=== PATIENT | male | born 1975 | race Caucasian/White ===

== ENCOUNTER 2020-09-11 11:37 | Emergency (ER) | payer OTHER, SELFPAY ==
[2020-09-11 11:38] VITALS: BP 144/95; PULSE 122; RESP 35; TEMP 36.9; O2SAT 96; BMI 29.5
--- NOTE | 2020-09-11 11:46 | XRR_ITS ---
PROCEDURE INFORMATION: Exam: XR Chest Exam date and time: 09/11/2020 12:18 PM Age: 45 years old Clinical indication: Pain; Dyspnea; Left-sided TECHNIQUE: Imaging protocol: XR of the chest. Views: 1 view. COMPARISON: No relevant prior studies available. FINDINGS: Lungs: Unremarkable. No consolidation. Pleural spaces: Unremarkable. No pleural effusion. No pneumothorax. Heart/Mediastinum: Unremarkable. No cardiomegaly. Bones/joints: Unremarkable. XR/XR chest 1V portable [id number] IMPRESSION: No acute findings.
[2020-09-11 11:48] VITALS: BP 127/69; PULSE 120; RESP 22; O2SAT 100
--- NOTE | 2020-09-11 11:49 | ECG_ITS ---
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 Measurements Intervals [place] Rate: 114 P: 58 DC: 151 QRS: 253 QRSD: 117 T: 55 QT: 365 QTc: 504 Interpretive Statements SINUS TACHYCARDIA POSSIBLE LEFT ATRIAL ENLARGEMENT [-0.1mV P WAVE IN V1/V2] RIGHT VENTRICULAR HYPERTROPHY [SOME/ALL OF: PROMINENT R IN V1, LATE TRANSITION, RAD, NATHAN, SSS] POSSIBLE ANTERIOR MYOCARDIAL INFARCTION [30 ms Q WAVE IN V3/V4, OR R < 0.2 mV IN V4], OF INDETERMINATE AGE No previous ECG available for comparison Electronically Signed On 09-11-2020 22:52:47 CDT by Shikha Zendejas M.D. [id number]
--- NOTE | 2020-09-11 11:50 | ED_ITS ---
HPI - SOB/Dyspnea General: Chief Complaint: Shortness of Breath/Dyspnea Stated Complaint: CHEST PAIN; SOB Time Seen by Provider: 09/11/20 11:46 History of Present Illness: HPI Narrative: The patient is a 45-year-old male with past medical history PTSD, anxiety who comes to the ER by ambulance complaining of shortness of breath, cough, chest pain, and wheezing for the past 4 days. He told his yesterday that he could not breathe and went to bed today he wakes up and the symptoms were worse. He called 911. EMS arrived and noted him with inspiratory and expiratory wheezing and tachypneic.. They gave him 2 albuterol treatments, 1 DuoNeb, Solu-Medrol, and terbutaline during transport. On arrival he is tachypneic however has no wheezing. He is complaining of mild left-sided chest pain that is worse with inspiration, movement, and reproducible by palpation. He says he gets frequent panic attacks related to his PTSD and he feels like he is having a panic attack right now. He says he has had asthma attacks in the past but does not suffer chronically from asthma. He says a few different times in the past he has had wheezing and required albuterol which improved his symptoms but he does not routinely have or use an albuterol inhaler. MD elicited complaint: shortness of breath, cough, pain with inspiration and chest pain Timing: constant Severity: moderate Exacerbating factors: nothing Relieving factors: bronchodilators Associated symptoms: Reports chest pain and cough; Deny abdominal pain, dizziness, extremity pain or polyuria Treatment prior to arrival: bronchodilator Review of Systems General: Reports: 10 or more systems reviewed and unremarkable except in HPI and below Const: Denies: fatigue Eyes: Denies: change in vision, blurry vision or eye redness ENMT: Denies: throat pain, swelling of lips/tongue, ear or mastoid pain or nasal congestion Card: Reports: chest pain Resp: Reports: dyspnea, non-productive cough and wheezing; Denies: productive cough GI: Denies: abdominal pain, diarrhea or GI cramping : Denies: flank pain, urinary frequency or urinary urgency Musc: Denies: neck pain, back pain, extremity pain, joint pain, joint redness, limited range of motion or muscle weakness Skin/Breast: Denies: rash, pruritus, erythema, skin pain or skin tenderness Neuro: Denies: headache(s), numbness in extremities, weakness in extremities, sensory changes, difficulty walking, dizziness, confusion or Slurred speech present Psych: Reports: anxiety and other (panic attack; PTSD); Denies: depression Endo: Denies: polyuria All/Imm: Denies: urticaria, throat swelling or tongue swelling Physical Exam Const: COMMON NORMALS: average body habitus, patient oriented x3, no limitations, healthy appearing, alert and well nourished GENERAL APPEARANCE: cooperative, comfortable, well developed and anxious ORIENTATION/CONSCIOUSNESS: Yes awake, Yes oriented to person, Yes oriented to place and Yes oriented to time OTHER: Severely anxious in panic attack. No wheezing on exam. HENMT: COMMON NORMALS: normocephalic, external ears normal and Normal external nose present HEAD & SCALP: normal to inspection and normocephalic NOSE: Normal external nose present EXTERNAL EAR: Yes external ears normal MOUTH: Normal oral and palatal mucosa present THROAT: posterior oropharynx normal Eye: COMMON NORMALS: Equal, round and reactive pupils present and EOMs intact bilaterally GENERAL EYE: appearance normal, both eyes and all related structures PUPIL: Yes Equal, round and reactive pupils present Neck/C-Spine: COMMON NORMALS: full ROM, no lymphadenopathy, no meningeal signs and no JVD GENERAL: Yes normal visual inspection Lymph: LYMPHATIC: no lymphadenopathy noted Chest: COMMONS NORMALS: normal inspection of the chest and normal palpation of entire chest wall Resp: COMMON NORMALS: normal respiratory effort, No retractions, No use of accessory muscles, clear to auscultation bilaterally and percussion normal EFFORT & INSPECTION: Yes able to speak in complete sentences and Yes tachypneic AUSCULTATION: clear to auscultation bilaterally PERCUSSION: percussion normal Cardio: COMMON NORMALS: no JVD, regular rhythm, S1 normal heart sound present, S2 normal heart sound present and Peripheral pulses 2+ throughout RATE: tachycardic RHYTHM: regular rhythm HEART SOUNDS: S1 normal heart sound present and S2 normal heart sound present PERIPHERAL PULSES: Peripheral pulses 2+ throughout GI: COMMON NORMALS: Normal to inspection, nondistended, normoactive bowel sounds present, Soft to palpation, non-tender and no masses INSPECTION: Yes normal to inspection PALPATION: Yes Soft to palpation : COMMON NORMALS: Yes no CVA tenderness BLADDER/KIDNEY EXAM: Yes no CVA tenderness Back/Pelvis: COMMON NORMALS: no CVA tenderness, thoracic and lumbar spine normal to inspection, no thoracic nor lumbar tenderness and thoraco-lumbar ROM normal Extremity: COMMON NORMALS: normal to inspection, full ROM, capillary refill normal, no joint enlargement and no pedal edema GENERAL: Yes normal exam except as noted Neuro: COMMON NORMALS: patient oriented x3, CN's II-XII intact bilaterally, moves all extremities, no focal motor deficits, no sensory deficits noted and gait normal SENSORIUM/ORIENTATION: Yes alert, Yes oriented to person, Yes oriented to place and Yes oriented to time MENINGEAL SIGNS: Yes no meningeal signs Psych: COMMON NORMALS: Normal thought process present, cooperative and normal affect SPEECH: Yes excessive and Yes rapid MOOD & AFFECT: Yes anxious and Yes Other affect and mood findings present (panic attack. severe anxiety.) THOUGHT PROCESS: Normal thought process present Skin: COMMON NORMALS: no rashes or lesions noted GENERAL SKIN EXAM: no rashes or lesions noted Course Vital Signs: Vital signs: Vital Signs Temperature 98.5 F 09/11/20 11:38 Pulse Rate 101 H 09/11/20 14:40 Respiratory Rate 16 09/11/20 14:40 Blood Pressure 117/75 09/11/20 14:40 Pulse Oximetry 94 09/11/20 14:40 MDM - SOB/Dyspnea MDM Narrative: Medical decision making narrative: The patient came in complaining of shortness of breath and wheezing at home since yesterday. He has severe PTSD and panic attacks as well. EMS gave him albuterol and Solu-Medrol with resolution of his symptoms. No wheezing in the ER. He was however having a significant panic attack and was given Ativan. He became calm. He was also complaining of pleuritic chest pain with coughing which was also reproducible by palpation. Troponins negative x2 as well as normal EKGs x2. He is stable for discharge. We will send him home with azithromycin for a potential bronchitis, Medrol Dosepak, and albuterol inhaler to help with his wheezing. Return to the ER at anytime with worsening symptoms. Follow-up with primary care physician next week to monitor improvement of symptoms. Lab Data: Labs: Lab Results 09/11/20 09/11/20 09/11/20 Range/Units 11:45 11:45 11:45 WBC 9.9 (4.0-10.0) 10^3/ uL RBC 4.95 (4.1-5.3) 10^6/u L Hgb 15.1 (11.7-16.6) g/dL Hct 45.3 (42.0-52.0) % MCV 91.5 (80-94) fL MCH 30.5 (28.0-34.0) pg MCHC 33.3 (30.0-36.0) g/dL RDW 14.3 (12.1-15.1) % Plt Count 200 (130-400) 10^3/c mm MPV 11.9 H (7.4-10.4) fL Neut % (Auto) 54.3 % Lymph % (Auto) 32.9 % [place] % (Auto) 9.7 % Eos % (Auto) 1.9 % Baso % (Auto) 0.6 % Neut # (Auto) 5.37 (1.8-7.7) 10^3/u L Lymph # (Auto) 3.3 (0.8-4.8) 10^3/u L [place] # (Auto) 1.0 H (0.2-0.9) 10^3/u L Eos # (Auto) 0.2 (0.0-0.8) 10^3/u L Baso # (Auto) 0.1 (0.0-0.1) 10^3/u L Nucleated RBC % (a uto) 0 % Nucleated RBCs # 0.0 /100WBC D-Dimer <= 0.27 (0-0.59) ug/mIFE U Sodium 133 L (136-145) mmol/L Potassium 4.4 (3.5-5.1) mmol/L Chloride 97 L (98-107) mmol/L Carbon Dioxide 22 (22-29) mmol/L Anion Gap 18.4 (5-19) BUN 18 (6-20) mg/dL Creatinine 0.9 (0.7-1.2) mg/dL GFR Calculation 91.7 (90-130) mL/min Glucose 95 (65-115) mg/dL Calculated Osmolal ity 278 L (285-295) mOsm/k g Lactate (0.5-2.2) mmol/L Calcium 9.0 (8.5-10.5) mg/dL Total Bilirubin 0.5 (0.15-1.2) mg/dL AST 32 (0-40) U/L ALT 38 (0-41) U/L Alkaline Phosphata se 65 (40-130) IU/L Creatine Kinase (39-308) U/L Troponin T Baselin e (0-15) ng/L Troponin T 120 Min [place] (0-15) ng/L Delta Troponin T (0-10) ABS# Total Protein 7.1 (6.6-8.7) g/dL Albumin 4.9 (3.5-5.2) g/dL Globulin 2.2 (1.3-4.6) g/dL TSH 1.43 (0.27-4.20) uIU/ mL Urine Color (Yellow) Urine Appearance (CLEAR) Urine pH (5-7) Ur Specific Gravit y (1.005-1.030) Urine Protein (Negative) Urine Glucose (UA) (Normal) Urine Ketones (Negative) Urine Blood (Negative) Urine Nitrate (Negative) Urine Bilirubin (Negative) Urine Urobilinogen (Negative) mg/dL Ur Leukocyte Gricelda ase (Negative) Urine Opiates Scre en (Negative) ng/mL Ur Barbiturates Sc reen (Negative) ng/mL Ur Phencyclidine S crn (Negative) ng/mL Ur Amphetamines Sc reen (Negative) ng/mL U Benzodiazepines Scrn (Negative) ng/mL Urine Cocaine Scre en (Negative) ng/mL U Marijuana (THC) Screen (Negative) ng/mL Ethyl Alcohol 62 H (0-10) mg/dL 09/11/20 09/11/20 09/11/20 Range/Units 11:45 11:45 12:05 WBC (4.0-10.0) 10^3/ uL RBC (4.1-5.3) 10^6/u L Hgb (11.7-16.6) g/dL Hct (42.0-52.0) % MCV (80-94) fL MCH (28.0-34.0) pg MCHC (30.0-36.0) g/dL RDW (12.1-15.1) % Plt Count (130-400) 10^3/c mm MPV (7.4-10.4) fL Neut % (Auto) % Lymph % (Auto) % [place] % (Auto) % Eos % (Auto) % Baso % (Auto) % Neut # (Auto) (1.8-7.7) 10^3/u L Lymph # (Auto) (0.8-4.8) 10^3/u L [place] # (Auto) (0.2-0.9) 10^3/u L Eos # (Auto) (0.0-0.8) 10^3/u L Baso # (Auto) (0.0-0.1) 10^3/u L Nucleated RBC % (a uto) % Nucleated RBCs # /100WBC D-Dimer (0-0.59) ug/mIFE U Sodium (136-145) mmol/L Potassium (3.5-5.1) mmol/L Chloride (98-107) mmol/L Carbon Dioxide (22-29) mmol/L Anion Gap (5-19) BUN (6-20) mg/dL Creatinine (0.7-1.2) mg/dL GFR Calculation (90-130) mL/min Glucose (65-115) mg/dL Calculated Osmolal ity (285-295) mOsm/k g Lactate 5.7 H* (0.5-2.2) mmol/L Calcium (8.5-10.5) mg/dL Total Bilirubin (0.15-1.2) mg/dL AST (0-40) U/L ALT (0-41) U/L Alkaline Phosphata se (40-130) IU/L Creatine Kinase 77 (39-308) U/L Troponin T Baselin e 7 (0-15) ng/L Troponin T 120 Min [place] (0-15) ng/L Delta Troponin T (0-10) ABS# Total Protein (6.6-8.7) g/dL Albumin (3.5-5.2) g/dL Globulin (1.3-4.6) g/dL TSH (0.27-4.20) uIU/ mL Urine Color (Yellow) Urine Appearance (CLEAR) Urine pH (5-7) Ur Specific Gravit y (1.005-1.030) Urine Protein (Negative) Urine Glucose (UA) (Normal) Urine Ketones (Negative) Urine Blood (Negative) Urine Nitrate (Negative) Urine Bilirubin (Negative) Urine Urobilinogen (Negative) mg/dL Ur Leukocyte Gricelda ase (Negative) Urine Opiates Scre en (Negative) ng/mL Ur Barbiturates Sc reen (Negative) ng/mL Ur Phencyclidine S crn (Negative) ng/mL Ur Amphetamines Sc reen (Negative) ng/mL U Benzodiazepines Scrn (Negative) ng/mL Urine Cocaine Scre en (Negative) ng/mL U Marijuana (THC) Screen (Negative) ng/mL Ethyl Alcohol (0-10) mg/dL 09/11/20 09/11/20 09/11/20 Range/Units 12:25 12:25 13:50 WBC (4.0-10.0) 10^3/ uL RBC (4.1-5.3) 10^6/u L Hgb (11.7-16.6) g/dL Hct (42.0-52.0) % MCV (80-94) fL MCH (28.0-34.0) pg MCHC (30.0-36.0) g/dL RDW (12.1-15.1) % Plt Count (130-400) 10^3/c mm MPV (7.4-10.4) fL Neut % (Auto) % Lymph % (Auto) % [place] % (Auto) % Eos % (Auto) % Baso % (Auto) % Neut # (Auto) (1.8-7.7) 10^3/u L Lymph # (Auto) (0.8-4.8) 10^3/u L [place] # (Auto) (0.2-0.9) 10^3/u L Eos # (Auto) (0.0-0.8) 10^3/u L Baso # (Auto) (0.0-0.1) 10^3/u L Nucleated RBC % (a uto) % Nucleated RBCs # /100WBC D-Dimer (0-0.59) ug/mIFE U Sodium (136-145) mmol/L Potassium (3.5-5.1) mmol/L Chloride (98-107) mmol/L Carbon Dioxide (22-29) mmol/L Anion Gap (5-19) BUN (6-20) mg/dL Creatinine (0.7-1.2) mg/dL GFR Calculation (90-130) mL/min Glucose (65-115) mg/dL Calculated Osmolal ity (285-295) mOsm/k g Lactate 3.5 H (0.5-2.2) mmol/L Calcium (8.5-10.5) mg/dL Total Bilirubin (0.15-1.2) mg/dL AST (0-40) U/L ALT (0-41) U/L Alkaline Phosphata se (40-130) IU/L Creatine Kinase (39-308) U/L Troponin T Baselin e (0-15) ng/L Troponin T 120 Min [place] (0-15) ng/L Delta Troponin T (0-10) ABS# Total Protein (6.6-8.7) g/dL Albumin (3.5-5.2) g/dL Globulin (1.3-4.6) g/dL TSH (0.27-4.20) uIU/ mL Urine Color Straw (Yellow) Urine Appearance Clear (CLEAR) Urine pH 6 (5-7) Ur Specific Gravit y 1.010 (1.005-1.030) Urine Protein Neg (Negative) Urine Glucose (UA) Norm (Normal) Urine Ketones Negative (Negative) Urine Blood Neg (Negative) Urine Nitrate Negative (Negative) Urine Bilirubin Neg (Negative) Urine Urobilinogen Norm (Negative) mg/dL Ur Leukocyte Gricel[place] ase Negative (Negative) Urine Opiates Scre en Negative (Negative) ng/mL Ur Barbiturates Sc reen Negative (Negative) ng/mL Ur Phencyclidine S crn Negative (Negative) ng/mL Ur Amphetamines Sc reen Negative (Negative) ng/mL U Benzodiazepines Scrn Negative (Negative) ng/mL Urine Cocaine Scre en Negative (Negative) ng/mL U Marijuana (THC) Screen Negative (Negative) ng/mL Ethyl Alcohol (0-10) mg/dL 09/11/20 Range/Units 14:00 WBC (4.0-10.0) 10^3/ uL RBC (4.1-5.3) 10^6/u L Hgb (11.7-16.6) g/dL Hct (42.0-52.0) % MCV (80-94) fL MCH (28.0-34.0) pg MCHC (30.0-36.0) g/dL RDW (12.1-15.1) % Plt Count (130-400) 10^3/c mm MPV (7.4-10.4) fL Neut % (Auto) % Lymph % (Auto) % [place] % (Auto) % Eos % (Auto) % Baso % (Auto) % Neut # (Auto) (1.8-7.7) 10^3/u L Lymph # (Auto) (0.8-4.8) 10^3/u L [place] # (Auto) (0.2-0.9) 10^3/u L Eos # (Auto) (0.0-0.8) 10^3/u L Baso # (Auto) (0.0-0.1) 10^3/u L Nucleated RBC % (a uto) % Nucleated RBCs # /100WBC D-Dimer (0-0.59) ug/mIFE U Sodium (136-145) mmol/L Potassium (3.5-5.1) mmol/L Chloride (98-107) mmol/L Carbon Dioxide (22-29) mmol/L Anion Gap (5-19) BUN (6-20) mg/dL Creatinine (0.7-1.2) mg/dL GFR Calculation (90-130) mL/min Glucose (65-115) mg/dL Calculated Osmolal ity (285-295) mOsm/k g Lactate (0.5-2.2) mmol/L Calcium (8.5-10.5) mg/dL Total Bilirubin (0.15-1.2) mg/dL AST (0-40) U/L ALT (0-41) U/L Alkaline Phosphata se (40-130) IU/L Creatine Kinase (39-308) U/L Troponin T Baselin e (0-15) ng/L Troponin T 120 Min [place] 6.00 (0-15) ng/L Delta Troponin T -1.00 L (0-10) ABS# Total Protein (6.6-8.7) g/dL Albumin (3.5-5.2) g/dL Globulin (1.3-4.6) g/dL TSH (0.27-4.20) uIU/ mL Urine Color (Yellow) Urine Appearance (CLEAR) Urine pH (5-7) Ur Specific Gravit y (1.005-1.030) Urine Protein (Negative) Urine Glucose (UA) (Normal) Urine Ketones (Negative) Urine Blood (Negative) Urine Nitrate (Negative) Urine Bilirubin (Negative) Urine Urobilinogen (Negative) mg/dL Ur Leukocyte Gricelda ase (Negative) Urine Opiates Scre en (Negative) ng/mL Ur Barbiturates Sc reen (Negative) ng/mL Ur Phencyclidine S crn (Negative) ng/mL Ur Amphetamines Sc reen (Negative) ng/mL U Benzodiazepines Scrn (Negative) ng/mL Urine Cocaine Scre en (Negative) ng/mL U Marijuana (THC) Screen (Negative) ng/mL Ethyl Alcohol (0-10) mg/dL Discharge Plan Discharge Patient Disposition: Home Condition: Stable Prescriptions: New azithromycin 250 mg tablet 250 mg PO DAILY 4 Days Qty: 4 RF: 0 Medrol (Av) 4 mg tablets,dose pack See Rx Instructions .ROUTE .COMPLEX Qty: 21 RF: 0 albuterol sulfate 90 mcg/actuation HFA aerosol inhaler 2 inh inhalation Q6H PRN (Reason: shortness of breath or wheezing) 30 Days RF: 0 Discharge Orders: Discharge ED (Routine); Ordered 09/11/20 Ordered By: Cyril Casanova Discharge Diet: Advance as tolerated Discharge Activity: Resume usual activity Patient Instructions: Asthma (ED), Acute Bronchitis (ED), Opioid Safety Activity Restrictions/Additional Instructions: You have come in complaining of shortness of breath and chest pain with coughing as well as wheezing. I will be discharging you home with an albuterol inhaler t o help with your wheezing, steroids, and an antibiotic to treat a potential bronchitis. Use the albuterol inhaler to help with your wheezing and follow-up with your primary care physician next week to monitor improvement of your symptoms. Return to the ER at anytime with worsening symptoms. Please keep in mind the steroids will take 1 to 2 days to fully kick in and help. Also continue to take the antibiotics as directed. Return to the ER at anytime with worsening symptoms. Coding Level of Care Code ED Systems Development Consultant for Jaquelin Fwsosa Exam Comprehensive
[2020-09-11 12:01] LABS: Basophils # 0.1 10^3/uL (0.0-0.1); Basophils % 0.6 %; Eosinophils # 0.2 10^3/uL (0.0-0.8); Eosinophils % 1.9 %; Hematocrit 45.3 % (42.0-52.0); Hemoglobin 15.1 g/dL (11.7-16.6); Lymphocytes # 3.3 10^3/uL (0.8-4.8); Lymphocytes % 32.9 %; Mean Corpuscular HGB Conc 33.3 g/dL (30.0-36.0); Mean Corpuscular Hemoglobin 30.5 pg (28.0-34.0); Mean Corpuscular Volume 91.5 fL (80-94); Mean Platelet Volume 11.9 fL (7.4-10.4); Monocytes % 9.7 %; Neutrophils # 5.37 10^3/uL (1.8-7.7); Neutrophils % 54.3 %; Nucleated Red Blood Cells % 0 %; Platelet Count 200 10^3/cmm (130-400); Red Blood Count 4.95 10^6/uL (4.1-5.3); Red Cell Distribution Width 14.3 % (12.1-15.1); White Blood Count 9.9 10^3/uL (4.0-10.0)
[2020-09-11] MEDS: sodium chloride 0.9% 1,000 ML 999 ML IV ×2 (12:04→13:07)
[2020-09-11] MEDS: LORazepam 2 mg/mL INJ 1 mL 1 MG IVP (12:04)
[2020-09-11 12:12] LABS: D Dimer <= 0.27 ug/mIFEU (0-0.59)
[2020-09-11 12:13] VITALS: BP 132/68; PULSE 114; RESP 18; O2SAT 94
[2020-09-11 12:19] LABS: Troponin(5th) Baseline 7 ng/L (0-15)
[2020-09-11 12:31] LABS: Lactate (Lactic Acid level) 5.7 mmol/L (0.5-2.2)
[2020-09-11 12:31] LABS: Add Urine Microscopic? NO; Charge for UA Resulting for Rev
[2020-09-11 12:33] LABS: Alanine Aminotransferase 38 U/L (0-41); Albumin Level 4.9 g/dL (3.5-5.2); Alcohol Level 62 mg/dL (0-10); Alkaline Phosphatase 65 IU/L (40-130); Aspartate Amino Transferase 32 U/L (0-40); Blood Urea Nitrogen 18 mg/dL (6-20); Carbon Dioxide 22 mmol/L (22-29); Chloride 97 mmol/L (98-107); Globulin 2.2 g/dL (1.3-4.6); Glomerular Filtration Rate 91.7 mL/min (90-130); Glucose 95 mg/dL (65-115); Osmolality Calculated 278 mOsm/kg (285-295); Sodium 133 mmol/L (136-145); Thyroid Stimulating Hormone 1.43 uIU/mL (0.27-4.20); Total Bilirubin 0.5 mg/dL (0.15-1.2); Total Protein 7.1 g/dL (6.6-8.7)
[2020-09-11 12:34] LABS: Bilirubin Urine Neg (Negative); Blood Urine Neg (Negative); Glucose Urine UA Norm (Normal); Ketones Urine Negative (Negative); Leukocyte Esterase Urine Negative (Negative); Nitrate Urine Negative (Negative); Protein Urine Neg (Negative); Urine Appearance Clear (CLEAR); Urine Color Straw (Yellow); Urobilinogen Urine Norm (Negative); pH Urine 6 (5-7)
[2020-09-11 12:43] LABS: Amphetamines Screen Urine Negative (Negative); Barbiturates Screen Urine Negative (Negative); Benzodiazepines Screen Urine Negative (Negative); Cocaine Screen Urine Negative (Negative); Opiate Screen Urine Negative (Negative); PCP Screen Urine Negative (Negative); THC Screen Urine Negative (Negative)
[2020-09-11 12:56] LABS: Anion Gap 18.4 (5-19); Potassium 4.4 mmol/L (3.5-5.1)
[2020-09-11 13:03] LABS: Creatine Phosphokinase 77 U/L (39-308)
[2020-09-11 13:36] VITALS: BP 110/62; PULSE 96; RESP 16; O2SAT 96
--- NOTE | 2020-09-11 13:49 | ECG_ITS ---
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 Measurements Intervals [place] Rate: 97 P: 29 [place]: 128 QRS: -53 QRSD: 118 T: 45 QT: 387 QTc: 493 Interpretive Statements SINUS RHYTHM PATTERN CONSISTENT WITH PULMONARY DISEASE LEFT ANTERIOR FASCICULAR BLOCK [QRS AXIS <= -45, QR IN I, RS IN II] Compared to ECG 09/11/2020 12:03:54 Left anterior fascicular block now present Sinus tachycardia no longer present Atrial abnormality no longer present Right ventricular hypertrophy no longer present Myocardial infarct finding no longer present Electronically Signed On 09-11-2020 23:10:46 CDT by Shikha Zendejas M.D. [id number]
[2020-09-11 14:28] LABS: Lactate (Lactic Acid level) 3.5 mmol/L (0.5-2.2)
[2020-09-11 14:40] VITALS: BP 117/75; PULSE 101; RESP 16; O2SAT 94
[2020-09-11 15:59] VITALS: BP 117/75; PULSE 101; RESP 16; O2SAT 94
== END 2020-09-11 16:00 | disposition home or self-care (01) ==
PROVIDERS: Emergency Provider Family Medicine
DX: R06.02 Shortness of breath (principal); R05 Cough; R07.9 Chest pain, unspecified
CPT/HCPCS: 71045; 80053; 80306; 80307; 81003; 82550; 83605; 84443; 84484; 85025; 85378; 93005; 96361; 96374; 99284; J2060; J7030

== ENCOUNTER 2021-04-25 14:07 | Outpatient (CLI) | payer OTHER, SELFPAY ==
--- NOTE | 2021-04-25 14:30 | US_ITS ---
WS: [id number] ULTRASOUND ABDOMEN CLINICAL INFORMATION: ABD RUQ PAIN COMPARISON: None. FINDINGS: Technically difficult study Liver Size: Enlarged Craniocaudal length: 16.3 cm. Echogenicity: Coarse Surface nodularity: None. Mass (size and location): None. Bile ducts Intrahepatic ducts: Normal. Common bile duct diameter: 0.4 cm. Gallbladder Normal. Gallstones: None. Gallbladder sludge: None. Gallbladder wall thickening: None. Pericholecystic fluid: None. Sonographic Gonzalez sign: Absent. Pancreas Normal as visualized. Spleen Splenomegaly: Enlarged Craniocaudal length: 14.7 cm. Right kidney: Normal. Hydronephrosis: None. Size: 10.9 cm x 5.4 cm x 5.3 cm Left kidney: Normal. Hydronephrosis: None. Size: 12.0 cm x 5.5 cm x 5.1 cm. Abdominal aorta and IVC Visualized portions are normal. Ascites: None. US/US abdomen complete* [id number] IMPRESSION: Technically difficult examination. 1. Hepatomegaly with diffuse fatty infiltration of the liver. 2. Splenomegaly. 3. Normal gallbladder. Normal common bile duct. 4. No hydronephrosis in either kidney.
== END 2021-04-25 14:08 | disposition home or self-care (01) ==
PROVIDERS: Visit Provider Nurse Practitioner
DX: R10.11 Right upper quadrant pain (principal); R16.2 Hepatomegaly with splenomegaly, not elsewhere classified; K76.0 Fatty (change of) liver, not elsewhere classified
CPT/HCPCS: 76700

== ENCOUNTER 2021-04-26 09:29 | Outpatient (CLI) | payer OTHER, SELFPAY ==
--- NOTE | 2021-04-26 09:37 | CT_ITS ---
WS: [id number] CT ABDOMEN CONTRAST TECHNIQUE: Contrast enhanced CT of the abdomen with coronal and sagittal reformatted images. CLINICAL INFORMATION: ENLARGED SPLEEN COMPARISON: Ultrasound April 25, 2021 DLP: 2340.[address] scans at [facility] use at least one of these dose optimization techniques: automated e xposure control; mA and/or kV adjustment per patient size (includes targeted exams where dose is matc hed to clinical indication); or iterative reconstruction. FINDINGS: Hepatomegaly with diffuse fatty infiltration liver. Normal gallbladder. Normal portal vein and spleni c vein. Normal gallbladder. Mild fatty atrophy of the pancreas. Adrenal glands are normal. Normal yadira al parenchymal enhancement. No hydronephrosis. Lung bases are well aerated. No upper abdominal lympha denopathy. Normal GE junction. Mild splenomegaly measures 14.5 x 6.8 cm. Spleen is otherwise unremarkable. Normal splenic parenchyma l enhancement. CT/CT abdomen w con* [id number] IMPRESSION: 1. Hepatomegaly with diffuse fatty infiltration of the liver. 2. Mild splenomegaly measuring 14.6 x 6.8 cm unchanged since the recent ultras ound. 3. Normal caliber upper abdominal aorta. 4. Adrenal glands are normal. 5. No other significant findings.
[2021-04-26] MEDS: iohexol 300 mg/mL 100 mL Btl IV (09:48)
== END 2021-04-26 09:30 | disposition home or self-care (01) ==
LOC: RAD 09:29
PROVIDERS: PCP Family Medicine; Visit Provider Family Medicine
DX: R16.1 Splenomegaly, not elsewhere classified (principal); R16.0 Hepatomegaly, not elsewhere classified; K76.0 Fatty (change of) liver, not elsewhere classified
CPT/HCPCS: 74160

== ENCOUNTER 2021-05-01 18:48 | Emergency (ER) | payer OTHER, SELFPAY ==
[2021-05-01 19:07] VITALS: BP 150/94; PULSE 91; RESP 20; TEMP 36.7; O2SAT 97; BMI 32.9
--- NOTE | 2021-05-01 21:16 | ED_ITS ---
HPI - Abdominal Pain General: Chief Complaint: Abdominal Pain Stated Complaint: abd pain Time Seen by Provider: 05/01/21 21:07 Source: patient Mode of arrival: ambulatory Limitations: no limitations History of Present Illness: 45-year-old male who states has been having epigastric abdominal pain over the last 9 to 10 days he has been seen at the [place] [facility] had an outpatient CT of the abdomen ultrasound of the gallbladder done here on the that were both negative. He states that he is continue to have pain that sharp in nature seems to be worse with eating denies any vomiting denies any fevers patient is comfortable here. Associated Symptoms: Reports nausea; Denies chills, dysuria and fever(s) Review of Systems Const: Denies: fever(s), chills, body aches or change in appetite Eyes: Denies: blurry vision or eye discomfort ENMT: Denies: throat pain or dental pain Card: Denies: chest pain Resp: Denies: dyspnea GI: Reports: abdominal pain and nausea : Denies: dysuria Musc: Denies: neck pain or back pain Skin/Breast: Denies: rash Neuro: Denies: headache(s) Psych: Denies: depression Chucky/Lymph: Denies: easy bruising All/Imm: Denies: urticaria Physical Exam Const: COMMON NORMALS: no acute distress, patient oriented x3 and healthy appearing HENMT: COMMON NORMALS: normocephalic and atraumatic HEAD & SCALP: normocephalic and atraumatic Eye: COMMON NORMALS: Equal, round and reactive pupils present and EOMs intact bilaterally PUPIL: Yes Equal, round and reactive pupils present Neck/C-Spine: COMMON NORMALS: full ROM and supple Chest: COMMONS NORMALS: normal inspection of the chest and normal palpation of entire chest wall Resp: COMMON NORMALS: normal respiratory effort, No retractions, No use of accessory muscles and clear to auscultation bilaterally AUSCULTATION: clear to auscultation bilaterally Cardio: COMMON NORMALS: regular rate, regular rhythm and No murmurs present (Cardio) RATE: regular rate RHYTHM: regular rhythm GI: COMMON NORMALS: Normal to inspection, nondistended, normoactive bowel sounds present, Soft to palpation and no masses PALPATION: Yes Soft to p alpation OTHER: epigastric tenderness mild Extremity: COMMON NORMALS: normal to inspection and full ROM Neuro: COMMON NORMALS: patient oriented x3, moves all extremities and no focal motor deficits Psych: COMMON NORMALS: mental status grossly normal, Normal thought process present and cooperative THOUGHT PROCESS: Normal thought process present Skin: COMMON NORMALS: no rashes or lesions noted and no wounds GENERAL SKIN EXAM: no rashes or lesions noted Course Vital Signs: Vital signs: Vital Signs Temperature 98.0 F 05/01/21 19:07 Pulse Rate 91 05/01/21 19:07 Respiratory Rate 20 H 05/01/21 21:27 Blood Pressure 150/94 05/01/21 19:07 Pulse Oximetry 97 05/01/21 19:07 MDM - Abdominal Pain Medical Decision Making Patient presents here with abdominal pain has been going on for weeks likely gastritis will start him on Protonix along with hydrocodone we will get him follow-up with surgery I did review his recent CT scan and ultrasound was done 5 days ago both were normal with no acute abnormalities blood work here is normal no signs of acute surgical abdomen he is return if worsening he understands agrees to plan. Lab Data : 05/01/21 21:15 05/01/21 22:10 Labs/Radiology: Laboratory Results WBC 6.2 10^3/uL (4.0-10.0) 05/01/21 21:15 RBC 5.16 10^6/uL (4.1-5.3) 05/01/21 21:15 Hgb 15.5 g/dL (11.7-16.6) 05/01/21 21:15 Hct 47.2 % (42.0-52.0) 05/01/21 21:15 MCV 91.5 fl (80-94) 05/01/21 21:15 MCH 30.0 pg (28.0-34.0) 05/01/21 21:15 MCHC 32.8 g/dL (30.0-36.0) 05/01/21 21:15 RDW 14.8 % (12.1-15.1) 05/01/21 21:15 Plt Count 141 10^3/cmm (130-400) 05/01/21 21:15 MPV 10.9 fL (7.4-10.4) H 05/01/21 21:15 Neut % (Auto) 53.7 % 05/01/21 21:15 Lymph % (Auto) 31.1 % 05/01/21 21:15 [place] % (Auto) 11.1 % 05/01/21 21:15 Eos % (Auto) 3.0 % 05/01/21 21:15 Baso % (Auto) 0.8 % 05/01/21 21:15 Neut # (Auto) 3.34 10^3/uL (1.8-7.7) 05/01/21 21:15 Lymph # (Auto) 1.9 10^3/uL (0.8-4.8) 05/01/21 21:15 [place] # (Auto) 0.7 10^3/uL (0.2-0.9) 05/01/21 21:15 Eos # (Auto) 0.2 10^3/uL (0.0-0.8) 05/01/21 21:15 Baso # (Auto) 0.1 10^3/uL (0.0-0.1) 05/01/21 21:15 Nucleated RBC % (auto) 0 % 05/01/21 21:15 Nucleated RBCs # 0.0 /100WBC 05/01/21 21:15 Sodium 137 mmol/L (136-145) 05/01/21 22:10 Potassium 3.6 mmol/L (3.5-5.1) 05/01/21 22:10 Chloride 107 mmol/L (98-107) 05/01/21 22:10 Carbon Dioxide 20 mmol/L (22-29) L 05/01/21 22:10 Anion Gap 13.6 (5-19) 05/01/21 22:10 BUN 10 mg/dL (6-20) 05/01/21 22:10 Creatinine 0.7 mg/dL (0.7-1.2) 05/01/21 22:10 GFR Calculation 122.5 mL/min (90-130) 05/01/21 22:10 Glucose 99 mg/dL (65-115) 05/01/21 22:10 Calculated Osmolality 283 mOsm/kg (285-295) L 05/01/21 22:10 Calcium 7.8 mg/dL (8.5-10.5) L 05/01/21 22:10 Total Bilirubin 0.4 mg/dL (0.15-1.2) 01/30/22 22:10 AST 53 U/L (0-40) H 05/01/21 22:10 ALT 47 U/L (0-41) H 05/01/21 22:10 Alkaline Phosphatase 73 IU/L (40-130) 05/01/21 22:10 Total Protein 6.4 g/dL (6.6-8.7) L 05/01/21 22:10 Albumin 4.1 g/dL (3.5-5.2) 05/01/21 22:10 Globulin 2.3 g/dL (1.3-4.6) 05/01/21 22:10 Lipase 13 U/L (13-60) 05/01/21 22:10 Discharge Plan Discharge Patient Disposition: Home Clinical Impression: Abdominal pain Qualifiers: Abdominal location: epigastric Qualified Code(s): R10.13 - Epigastric pain Condition: Stable Prescriptions: New hydrocodone-acetaminophen 5-325 mg tablet 1 tab PO Q6H PRN (Reason: pain) Qty: 14 0RF pantoprazole [Protonix] 40 mg tablet,delayed release (DR/EC) 40 mg PO DAILY Qty: 60 0RF No Action Medrol (Av) 4 mg tablets,dose pack See Rx Instructions .ROUTE .COMPLEX Qty: 21 0RF Rx Instructions: orally per package directions Discharge Orders: Discharge ED (Routine); Ordered 05/01/21 Ordered By: Colleen Mares Referrals: Margi Wang MD [Primary Care Provider] - Patrick Lee MD [Physician] - 1-3 days Discharge Diet: Advance as tolerated Discharge Activity: Resume usual activity Patient Instructions: Abdominal Pain (ED), Opioid Safety Coding Level of Care Code ED [employer] Workers for Chg Fwd Exam Comprehensive
[2021-05-01 21:27] VITALS: RESP 20
[2021-05-01] MEDS: morphine 4 mg/mL SDV 1 mL IVP (21:27)
[2021-05-01] MEDS: ondansetron 2 mg/ML SDV 2 mL 4 MG IVP (21:27)
[2021-05-01 21:28] LABS: Basophils # 0.1 10^3/uL (0.0-0.1); Basophils % 0.8 %; Eosinophils # 0.2 10^3/uL (0.0-0.8); Hematocrit 47.2 % (42.0-52.0); Hemoglobin 15.5 g/dL (11.7-16.6); Lymphocytes # 1.9 10^3/uL (0.8-4.8); Lymphocytes % 31.1 %; Mean Corpuscular HGB Conc 32.8 g/dL (30.0-36.0); Mean Corpuscular Volume 91.5 fl (80-94); Mean Platelet Volume 10.9 fL (7.4-10.4); Monocytes # 0.7 10^3/uL (0.2-0.9); Monocytes % 11.1 %; Neutrophils # 3.34 10^3/uL (1.8-7.7); Neutrophils % 53.7 %; Nucleated Red Blood Cells % 0 %; Platelet Count 141 10^3/cmm (130-400); Red Blood Count 5.16 10^6/uL (4.1-5.3); Red Cell Distribution Width 14.8 % (12.1-15.1); White Blood Count 6.2 10^3/uL (4.0-10.0)
[2021-05-01 22:35] LABS: Alanine Aminotransferase 47 U/L (0-41); Albumin Level 4.1 g/dL (3.5-5.2); Alkaline Phosphatase 73 IU/L (40-130); Anion Gap 13.6 (5-19); Aspartate Amino Transferase 53 U/L (0-40); Blood Urea Nitrogen 10 mg/dL (6-20); Calcium 7.8 mg/dL (8.5-10.5); Carbon Dioxide 20 mmol/L (22-29); Chloride 107 mmol/L (98-107); Globulin 2.3 g/dL (1.3-4.6); Glomerular Filtration Rate 122.5 mL/min (90-130); Glucose 99 mg/dL (65-115); Lipase 13 U/L (13-60); Osmolality Calculated 283 mOsm/kg (285-295); Potassium 3.6 mmol/L (3.5-5.1); Sodium 137 mmol/L (136-145); Total Bilirubin 0.4 mg/dL (0.15-1.2); Total Protein 6.4 g/dL (6.6-8.7)
[2021-05-01 23:13] VITALS: BP 122/85; PULSE 83; RESP 18; TEMP 36.6; O2SAT 97
--- NOTE | 2021-05-02 10:02 | DCPLANNER ---
Addendum entered by Dimple Trinidad 05/06/21 13:25: Patient had a follow up appointment scheduled for 05.03.21 with [facility] General Surgery - patient did attend appointment. Original Note: medical clinic manager had message to schedule a follow up appointment for patient with general surgery. medical clinic manager emailed patients information to Leslee Chen and Meron at [facility] General Surgery / ENT clinic. Patients information will be printed and reviewed. Clinic will call patient with appointment information. Patient has [facility] insurance, case reviewer emailed patients information to Megan with the [facility], for the authorization process can be started.
== END 2021-05-01 23:15 | disposition home or self-care (01) ==
PROVIDERS: Emergency Provider Emergency Medicine; PCP Family Medicine
DX: R10.13 Epigastric pain (principal)
CPT/HCPCS: 80053; 83690; 85025; 96374; 96375; 99283; J2270; J2405

== ENCOUNTER 2021-05-12 14:58 | Emergency (ER) | payer OTHER, SELFPAY ==
--- NOTE | 2021-05-12 15:06 | XR_ITS ---
WS: [id number] XR chest 1V portable [id number] REASON FOR EXAM: abnormal ekg FINDINGS: Chest is unchanged compared to 09/11/2020. Normal thoracic aorta and heart. Right retrocardiac density is felt to represent prominent pulmonary venous confluence. Calcified granulomatous disease in both hemithoraces. No acute pulmonary parenchymal or pleural abnormality. XR/XR chest 1V portable [id number] IMPRESSION: No acute chest abnormality.
--- NOTE | 2021-05-12 15:06 | W.ED.ABDPA2 ---
HPI - Abdominal Pain General: Chief Complaint: Abdominal Pain Stated Complaint: ST ELEVATION Time Seen by Provider: 05/12/21 15:05 History of Present Illness: is a 45-year-old gentleman with history of hypertension, hyperlipidemia, and remote history of tobaccoism who presents the emergency department due to nausea and vomiting. He was STEMI activated by EMS. Apparently has had approximately 2 and half weeks of left-sided abdominal pain which is burning and sharp in nature. This has progressively worsened despite being seen previously without specific cause. He reports being told that he likely has an ulcer however this has not improved with medication. Over the past 2 days he reports inability to tolerate oral intake. Symptoms are worse after oral intake. He has nonbloody emesis after any intake and dry heaves. Additionally he has noted mild amount of blood in his stool. Denies associated shortness of breath or chest pain. Overall the course of symptoms has been worsening. Intensity is moderate to severe. No other specific changes in health, exacerbating, or relieving factors identified. Pertinent past history: other Onset (ago): week(s) Pain Consistency: constant Location: LUQ and LLQ Severity: moderate Quality: burning Exacerbating factors: eating Relieving factors: nothing Associated Symptoms: Reports constipation, nausea and vomiting; Denies hematemesis Review of Systems General: Reports: 10 or more systems reviewed and unremarkable except in HPI and below GI: Reports: nausea, vomiting and constipation; Denies: hematemesis [facility] ED PFSH: Medical History Hypertension PTSD (post-traumatic stress disorder) Surgical History History of bilateral knee arthroplasty Social History Smoking and tobacco status: former smoker Physical Exam Const: COMMON NORMALS: alert GENERAL APPEARANCE: cooperative and well developed HENMT: COMMON NORMALS: normocephalic and atraumatic HEAD & SCALP: normocephalic and atraumatic THROAT: posterior oropharynx normal Eye: COMMON NORMALS: conjunctivae normal CONJUNCTIVA: Yes conjunctivae normal SCLERA: sclerae normal Neck/C-Spine: COMMON NORMALS: supple GENERAL: Yes trachea midline Resp: COMMON NORMALS: normal respiratory effort EFFORT & INSPECTION: Yes able to speak in complete sentences Cardio: COMMON NORMALS: regular rate and regular rhythm RATE: regular rate RHYTHM: regular rhythm GI: COMMON NORMALS: Soft to palpation PALPATION: Yes Soft to palpation, Yes Tenderness to palpation present (GI), No Guarding due to palpation present (GI) and No Rigid due to palpation Extremity: GENERAL: Yes normal exam except as noted and No edema Neuro: COMMON NORMALS: moves all extremities SENSORIUM/ORIENTATION: Yes alert and No Orientation impaired Psych: COMMON NORMALS: mental status grossly normal and Normal thought process present THOUGHT PROCESS: Normal thought process present Course ED course: - Patient was seen and evaluated by me at bedside immediately upon arrival. Patient had been STEMI activated by EMS. Upon review of their EKG I did not see clear evidence of STEMI though there was some wandering baseline and I can appreciate why they thought it could be a STEMI. Therefore I immediately reviewed a EKG as soon as it was obtained. No STEMI activation at this time. I discussed the case with cardiology as well, who agrees with no STEMI activation. - Patient placed on cardiac monitors, IV access obtained - Initial evaluation notable for exam as above -Analgesia, antiemetic, fluids ordered - Labs notable for no leukocytosis, mild hemoconcentration compared to prior. No acute electrolyte disturbance, transaminitis is noted again perhaps worse compared to prior, lipase normal. Negative acute hepatitis - Imaging notable for negative chest x-ray. CT imaging notable for fatty infiltration of the liver and mild splenomegaly, fatty infiltration likely explains some degree of transaminitis. Based on CT evaluation of right upper quadrant I do not feel that additional imaging is warranted at this time. Patient does not have specific right upper quadrant tenderness and there is no evidence of jaundice. - Upon serial reexamination after treatment the patient was improved. He tolerated p.o. intake - Based on patient history, evaluation, labs, and imaging as interpreted the most likely cause of the patient's condition is abdominal pain. - The results of ED evaluation were discussed with the patient including prescriptions and/or symptomatic cares (if applicable) including appropriate and responsible use, followup plan, and return precautions. The patient verbalized understanding and felt safe for discharge. - Patient discharged in satisfactory condition. Note: Click bubbles or prepopulated [place] in note writing are used for assistance with data collection and billing and are inherently more limited than narrative and other text portions of this note. Please use narrative for additional clinical history and defer to narrative/free test for any case of contradictory information. If information appears in only free text or click bubble it should be considered present or absent as reported. Please contact note leader writer for clarifications of clinical information or contradictory information. MDM is a brief summary, contradictory or erroneous seeming information should be clarified and full note should be reviewed. Vital Signs: Vital signs: Vital Signs Temperature 98.2 F 05/12/21 15:12 Pulse Rate 70 05/12/21 22:46 Respiratory Rate 16 05/12/21 22:46 Blood Pressure 147/84 05/12/21 22:46 Pulse Oximetry 99 05/12/21 22:46 MDM - Abdominal Pain Medical Decision Making 45-year-old gentleman presenting with abdominal pain. Initially STEMI activated however no evidence of a STEMI on repeat EKG and patient not having chest pain Abdominal pain has been ongoing. No significant identified pathology/etiology on repeat ED evaluation. Improved with treatment and able to tolerate p.o. intake. Plan to continue outpatient management including planned endoscopy. Medical Records I reviewed the patient's medical records. Lab Data I reviewed the patient's lab results. : 05/12/21 15:02 05/12/21 15:02 Labs/Radiology: Radiology Impressions Chest X-Ray 05/12/21 15:06 IMPRESSION: No acute chest abnormality. Abdomen/Pelvis CT 05/12/21 15:25 IMPRESSION: 1. Fatty infiltration of the liver. 2. Mild splenomegaly. Laboratory Results WBC 7.3 10^3/uL (4.0-10.0) 05/12/21 15:02 RBC 5.51 10^6/uL (4.1-5.3) H 05/12/21 15:02 Hgb 16.6 g/dL (11.7-16.6) 05/12/21 15:02 Hct 50.1 % (42.0-52.0) 05/12/21 15:02 MCV 90.9 fl (80-94) 05/12/21 15:02 MCH 30.1 pg (28.0-34.0) 05/12/21 15:02 MCHC 33.1 g/dL (30.0-36.0) 05/12/21 15:02 RDW 14.0 % (12.1-15.1) 05/12/21 15:02 Plt Count 217 10^3/cmm (130-400) 05/12/21 15:02 MPV 11.1 fL (7.4-10.4) H 05/12/21 15:02 Neut % (Auto) 38.6 % 05/12/21 15:02 Lymph % (Auto) 50.7 % 05/12/21 15:02 [place] % (Auto) 7.7 % 05/12/21 15:02 Eos % (Auto) 2.2 % 05/12/21 15:02 Baso % (Auto) 0.7 % 05/12/21 15:02 Neut # (Auto) 2.83 10^3/uL (1.8-7.7) 05/12/21 15:02 Lymph # (Auto) 3.7 10^3/uL (0.8-4.8) 05/12/21 15:02 [place] # (Auto) 0.6 10^3/uL (0.2-0.9) 05/12/21 15:02 Eos # (Auto) 0.2 10^3/uL (0.0-0.8) 05/12/21 15:02 Baso # (Auto) 0.1 10^3/uL (0.0-0.1) 05/12/21 15:02 Nucleated RBC % (auto) 0 % 05/12/21 15:02 Nucleated RBCs # 0.0 /100WBC 05/12/21 15:02 Sodium 141 mmol/L (136-145) 05/12/21 15:02 Potassium 4.0 mmol/L (3.5-5.1) 05/12/21 15:02 Chloride 101 mmol/L (98-107) 05/12/21 15:02 Carbon Dioxide 25 mmol/L (22-29) 05/12/21 15:02 Anion Gap 19.0 (5-19) 05/12/21 15:02 BUN 10 mg/dL (6-20) 05/12/21 15:02 Creatinine 0.8 mg/dL (0.7-1.2) 05/12/21 15:02 GFR Calculation 105.0 mL/min (90-130) 05/12/21 15:02 Glucose 103 mg/dL (65-115) 05/12/21 15:02 Calculated Osmolality 291 mOsm/kg (285-295) 05/12/21 15:02 Calcium 9.6 mg/dL (8.5-10.5) 05/12/21 15:02 Total Bilirubin 0.4 mg/dL (0.15-1.2) 05/12/21 15:02 AST 124 U/L (0-40) H 05/12/21 15:02 ALT 98 U/L (0-41) H 05/12/21 15:02 Alkaline Phosphatase 77 IU/L (40-130) 05/12/21 15:02 Troponin T Baseline 7 ng/L (0-15) 05/12/21 15:02 Troponin T 120 Minute 6.77 ng/L (0-15) 05/12/21 17:49 Delta Troponin T -0.23 ABS# (0-10) L 05/12/21 17:49 Troponin T Hi Sens 6Hr 6.48 ng/L (0-15) 05/12/21 21:28 Troponin T Hi Sens 6Hr Delta -0.52 ng/L (0-12) L 05/12/21 21:28 Total Protein 8.4 g/dL (6.6-8.7) 05/12/21 15:02 Albumin 5.1 g/dL (3.5-5.2) 05/12/21 15:02 Globulin 3.3 g/dL (1.3-4.6) 05/12/21 15:02 Lipase 16 U/L (13-60) 05/12/21 15:02 Hepatitis A IgM Ab Non-reactive (Nonreactive) 05/12/21 15:02 Hep Bs Antigen Non-reactive (Nonreactive) 05/12/21 15:02 Hep B Core IgM Ab Non-reactive (Nonreactive) 05/12/21 15:02 Hepatitis C Antibody Non-reactive (Nonreactive) 05/12/21 15:02 EKG Data EKG 1: I personally reviewed and interpreted this EKG as follows: EKG interpretation date: 05/12/21 EKG interpretation time: 15:00 Interpretation: Twelve-lead EKG shows a regular rhythm at a rate of 71. PA interval 160, cures duration 121, QTc 419. Left axis deviation. Interpretation: Sinus rhythm. Interventricular conduction delay. Nonspecific ST segment abnormalities. EKG 2: I personally reviewed and interpreted this EKG as follows: EKG interpretation date: 05/12/21 EKG interpretation time: 18:20 Interpretation: Twelve-lead EKG shows a regular rhythm at a rate of 79. PA interval 156, QRS duration 117, QTc 433. Left axis deviation. Interpretation: Sinus rhythm. Nonspecific ST segment abnormalities. Interventricular conduction delay. Critical Care Time Critical Care Time: Critical Care Time: Yes Total Critical Care Time: 40 Attestation: Due to a high probability of clinically significant, possibly life threatening deterioration, the patient required my highest level of attention and preparedness to intervene emergently and I personally spent this critical care time directly and personally managing the patient. This critical care time included obtaining a history; examining the patient; pulse oximetry; ordering and review of laboratory and imaging studies; arranging urgent treatment with development of a management plan; evaluation of patient's response to treatment; frequent reassessment; and, discussions with other providers as applicable. It was exclusive of separately billable procedures. Discharge Plan Discharge Patient Disposition: Home Clinical Impression: Abdominal pain, Nausea and vomiting, Elevated transaminase level Condition: Stable Prescriptions: New Zofran 4 mg tablet 4 mg PO Q8H PRN (Reason: nausea and vomiting) 5 Days Qty: 15 0RF oxycodone 5 mg tablet 5 mg PO Q4H PRN (Reason: pain) Qty: 10 0RF Miralax 17 gram powder in packet 34 g PO DAILY Qty: 30 0RF No Action meloxicam 15 mg tablet 15 mg PO DAILY 0RF sucralfate [Carafate] 1 gram tablet 1 g PO QID 30 Days Qty: 120 0RF hydrocodone-acetaminophen 5-325 mg tablet 1 tab PO Q6H PRN (Reason: pain) Qty: 14 0RF Zoloft 100 mg Tablet 100 mg PO QAM 0RF omeprazole 40 mg Capsule,Delayed Release(Dr/Ec) 40 mg PO QAM 0RF sildenafil 100 mg Tablet 100 mg PO PRN PRN (Reason: Erectile Dysfunction) 0RF baclofen 10 mg Tablet 10 mg PO TID PRN (Reason: Muscle Spasm) 0RF lisinopril 10 mg Tablet 10 mg PO DAILY PRN (Reason: Blood Pressure) 0RF gabapentin 300 mg Capsule See Rx Instructions .ROUTE .COMPLEX 0RF Rx Instructions: 300mg po bid and 600mg po bedtime ProAir HFA 90 mcg/actuation Hfa Aerosol Inhaler 2 puff INHALATION QID PRN (Reason: Shortness Of Breath) 0RF prazosin 2 mg Capsule 4 mg PO BEDTIME 0RF [place] Original 325-1,916-1,000 mg Tablet, Effervescent 1 tab PO PRN 0RF Vitamin D3 50 mcg (2,000 unit) Tablet 4,000 unit PO DAILY 0RF melatonin 10 mg Tablet 10 mg PO DAILY PRN (Reason: Sleep) 0RF Discharge Orders: Discharge ED (Routine); Ordered 05/12/21 Ordered By: Maury Mendez Referrals: Margi Wang MD [Primary Care Provider] - Discharge Diet: Clear Liquid Discharge Activity: Resume usual activity Patient Instructions: Acute Nausea and Vomiting (ED), Abdominal Pain (ED), Opioid Safety Activity Restrictions/Additional Instructions: Thank you for visiting the emergency department. You were seen and evaluated for continued abdominal pain with new nausea and vomiting. The exact cause of your symptoms is unclear. I recommend continued outpatient evaluation with endoscopy. Please return to the emergency department for worsening symptoms, inability to tolerate oral intake, or anything else that you are concerned about and feel needs emergency department evaluation. Coding Level of Care Code ED Reference And Instruction Librarian for Chg Fwd Exam Comprehensive
--- NOTE | 2021-05-12 15:07 | ECG_ITS ---
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1975 Requested By: Maury Mendez Order Number: [id number] Velasquez MD: RADHA OSORIO Measurements Intervals [place] Rate: 71 P: 48 CT: 160 QRS: -69 QRSD: 121 T: 37 QT: 396 QTc: 433 Interpretive Statements SINUS RHYTHM POSSIBLE RIGHT VENTRICULAR CONDUCTION DELAY [RSR (QR) IN V1/V2] LEFT ANTERIOR FASCICULAR BLOCK [QRS AXIS <= -45, QR IN I, RS IN II] ST ELEVATION CONSISTENT WITH INJURY, PERICARDITIS, OR EARLY REPOLARIZATION [ST ELEVATION W/O NORMALLY INFLECTED T-WAVE] Compared to ECG 09/11/2020 13:31:02 ST (T wave) deviation now present Early repolarization now present Electronically Signed On 05-12-2021 21:47:37 ICE CRUSHER by RADHA OSORIO [id number]
[2021-05-12 15:12] VITALS: BP 139/102; PULSE 79; RESP 21; TEMP 36.8; O2SAT 98; BMI 32.5
[2021-05-12 15:17] LABS: Basophils # 0.1 10^3/uL (0.0-0.1); Basophils % 0.7 %; Eosinophils # 0.2 10^3/uL (0.0-0.8); Eosinophils % 2.2 %; Hematocrit 50.1 % (42.0-52.0); Hemoglobin 16.6 g/dL (11.7-16.6); Lymphocytes # 3.7 10^3/uL (0.8-4.8); Lymphocytes % 50.7 %; Mean Corpuscular HGB Conc 33.1 g/dL (30.0-36.0); Mean Corpuscular Hemoglobin 30.1 pg (28.0-34.0); Mean Corpuscular Volume 90.9 fl (80-94); Mean Platelet Volume 11.1 fL (7.4-10.4); Monocytes # 0.6 10^3/uL (0.2-0.9); Monocytes % 7.7 %; Neutrophils # 2.83 10^3/uL (1.8-7.7); Neutrophils % 38.6 %; Nucleated Red Blood Cells % 0 %; Platelet Count 217 10^3/cmm (130-400); Red Blood Count 5.51 10^6/uL (4.1-5.3); White Blood Count 7.3 10^3/uL (4.0-10.0)
--- NOTE | 2021-05-12 15:25 | CTR_ITS ---
PROCEDURE INFORMATION: Exam: CT Abdomen And Pelvis With Contrast Exam date and time: 05/12/2021 3:25 PM Age: 45 years old Clinical indication: Abdominal pain; Localized; Left; Additional info: Left abdominal pain, n/v TECHNIQUE: Imaging protocol: Computed tomography of the abdomen and pelvis with contrast. Radiation optimization: All CT scans at this facility use at least one of these dose optimization techniques: automated exposure control; mA and/or kV adjustment per patient size (includes targeted exams where dose is matched to clinical indication); or iterative reconstruction. Contrast material: OMNI 300; Contrast volume: 95 ml; Contrast route: INTRAVENOUS (IV); COMPARISON: CT abdomen w con* [id number] 04/26/2021 9:52 AM RADIATION DOSE METRICS: Total DLP (mGy-cm): 1785.07 FINDINGS: Liver: Moderate diffuse hypoattenuation of the liver is present consistent with hepatic steatosis. Gallbladder and bile ducts: Normal. No calcified stones. No ductal dilation. Pancreas: Moderate pancreatic atrophy. Spleen: The spleen is enlarged measuring 14.9 cm longitudinally. Adrenal glands: Normal. No mass. Kidneys and ureters: Normal. No hydronephrosis. Stomach and bowel: Unremarkable. No obstruction. No mucosal thickening. Appendix: The vermiform appendix is not identified on this examination. There is, however, no pericecal abnormality to suggest appendicitis. Intraperitoneal space: No free air. No significant fluid collection. Vasculature: Small right pelvic calcified phlebolith. Lymph nodes: Pericecal lymph node measuring 10.7 mm short axis. Urinary bladder: Unremarkable as visualized. Reproductive: Unremarkable as visualized. Bones/joints: Unremarkable. No acute fracture. Soft tissues: Unremarkable. CT/CT abdomen pelvis w con* [id number] IMPRESSION: 1. Fatty infiltration of the liver. 2. Mild splenomegaly.
[2021-05-12] MEDS: ondansetron 2 mg/ML SDV 2 mL 4 MG IVP (15:26)
[2021-05-12] MEDS: sodium chloride 0.9% 1,000 ML 999 ML IV ×2 (15:26→22:14)
[2021-05-12 15:43] LABS: Troponin(5th) Baseline 7 ng/L (0-15)
[2021-05-12 15:45] LABS: Alanine Aminotransferase 98 U/L (0-41); Albumin Level 5.1 g/dL (3.5-5.2); Alkaline Phosphatase 77 IU/L (40-130); Blood Urea Nitrogen 10 mg/dL (6-20); Calcium 9.6 mg/dL (8.5-10.5); Carbon Dioxide 25 mmol/L (22-29); Chloride 101 mmol/L (98-107); Globulin 3.3 g/dL (1.3-4.6); Glucose 103 mg/dL (65-115); Osmolality Calculated 291 mOsm/kg (285-295); Sodium 141 mmol/L (136-145); Total Bilirubin 0.4 mg/dL (0.15-1.2); Total Protein 8.4 g/dL (6.6-8.7)
[2021-05-12 15:52] LABS: Aspartate Amino Transferase 124 U/L (0-40)
--- NOTE | 2021-05-12 15:53 | PC.PHAR ---
pt states his geno is his caregiver-pts verified pts medications notes are made in the pharmacy comments
[2021-05-12 16:00] VITALS: RESP 26
[2021-05-12] MEDS: morphine 4 mg/mL SDV 1 mL IVP ×2 (16:00→22:14)
[2021-05-12 16:07] VITALS: BP 123/80; PULSE 71; RESP 17; O2SAT 98
[2021-05-12 16:59] LABS: Hepatitis A Antibody IgM Non-Reactive (Nonreactive); Hepatitis B Core IgM Non-Reactive (Nonreactive); Hepatitis B Surface Antigen Non-Reactive (Nonreactive); Hepatitis C Virus Antibody Non-Reactive (Nonreactive)
--- NOTE | 2021-05-12 17:07 | ECG_ITS ---
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1975 Requested By: Maury Mendez Order Number: [id number] Velasquez MD: RADHA OSORIO Measurements Intervals [place] Rate: 79 P: 42 CT: 156 QRS: -72 QRSD: 117 T: 32 QT: 399 QTc: 457 Interpretive Statements SINUS RHYTHM PATTERN CONSISTENT WITH PULMONARY DISEASE LEFT ANTERIOR FASCICULAR BLOCK [QRS AXIS <= -45, QR IN I, RS IN II] NONSPECIFIC ST ELEVATION [0.05+ mV ST ELEVATION] Compared to ECG 05/12/2021 15:00:21 Early repolarization no longer present ST (T wave) deviation still present Electronically Signed On 05-12-2021 21:48:58 DIRECTOR REACTOR PROJECTS by RADHA OSORIO [id number]
[2021-05-12 17:09] LABS: Lipase 16 U/L (13-60)
[2021-05-12] MEDS: lidocaine 2% viscous 15 ML, aluminum-mag hydrox-simethicon 30 ML, sucralfate oral liq 1 GM PO (17:45)
[2021-05-12 17:55] VITALS: BP 111/70; PULSE 65; RESP 15; O2SAT 98
[2021-05-12 18:54] LABS: Troponin 5 2HR 6.77 ng/L (0-15)
[2021-05-12 19:31] LABS: Troponin 5 2HR Delta -0.23 ABS# (0-10)
[2021-05-12 21:59] LABS: Troponin 5 6HR 6.48 ng/L (0-15)
[2021-05-12 22:14] VITALS: RESP 16
[2021-05-12 22:35] LABS: Troponin 5 6HR Delta -0.52 ng/L (0-12)
[2021-05-12 22:46] VITALS: BP 147/84; PULSE 70; RESP 16; O2SAT 99
== END 2021-05-12 22:09 | disposition home or self-care (01) ==
PROVIDERS: Emergency Provider Emergency Medicine; PCP Family Medicine
DX: R10.9 Unspecified abdominal pain (principal); R11.2 Nausea with vomiting, unspecified; R74.01 Elevation of levels of liver transaminase levels; I10 Essential (primary) hypertension; Z87.891 Personal history of nicotine dependence
CPT/HCPCS: 36415; 71045; 74177; 80053; 80074; 83690; 84484; 85025; 93005; 96361; 96374; 96375; 96376; 99284; J2270; J2405; J7030; Q9967

== ENCOUNTER → 2021-05-24 09:23 | Outpatient (BNVA) | payer OTHER, SELFPAY | PROVIDERS: PCP Family Medicine; Visit Provider Surgery | DX: Z11.52 Encounter for screening for COVID-19 (principal) | CPT/HCPCS: 87635 ==

== ENCOUNTER 2021-05-27 06:25 | Day surgery (SDC) | payer OTHER, SELFPAY ==
[2021-05-25 12:19] VITALS: BMI 32.5
--- NOTE | 2021-05-27 06:39 | ANES.PREANE2 ---
Pre-Anesthetic Assessment Height/Weight: Height 1.75 m Weight 99.79 kg Preop Diagnosis: upper gi symptoms Operation Date: 05/27/21 09:15 Proposed Procedures p EGD 56121/r10.9(Not Applicable) - Patrick Lee MD Familial anesthetic complications: None Was Beta Asha taken within 24 hours: N/A Was Clonidine taken within 24 hours: N/A Last intake: > 8 hrs Social No alcohol and No tobacco former smoker Exam alert, oriented x 3, clear to auscultation bilaterally and regular rate & rhythm Airway Mallampati: Class II Dentition: full Pulmonary albuterol inhaler 2x a week, but hasn't been told he has asthma. CV/HEM Hypertension None reported Hepatic None reported GI Gastroesophageal Reflux Disease Metabolic None reported Musc/skel Lower Back Pain Neuropsych None reported Anesthetic Plan ASA status: 2 Anesthesia: MAC Risk of > 500 ml blood loss (7ml/kg in children): No Medications/Allergies Home Medications Medication Instructions Recorded Confirmed Last Taken Type hydrocodone 5 mg-acetaminophen 325 1 tab PO Q6H PRN #14 tab 05/01/21 05/25/21 Unknown Rx mg tablet meloxicam 15 mg tablet 15 mg PO DAILY 05/03/21 05/25/21 Unknown History sucralfate 1 gram tablet (Carafate) 1 g PO QID 30 Days #120 tab 05/03/21 05/25/21 05/12/21 10:00 Rx albuterol sulfate 90 mcg/actuation 2 puff INHALATION QID PRN 05/12/21 05/25/21 Unknown History aerosol inhaler (ProAir HFA) aspirin-sod bicarb-citric acid 325 1 tab PO PRN 05/12/21 05/25/21 05/11/21 History mg-1,916 mg-1,000 mg efferves tab ([place] Original) baclofen 10 mg tablet 10 mg PO TID PRN 05/12/21 05/25/21 Unknown History cholecalciferol (vitamin D3) 50 4,000 unit PO DAILY 05/12/21 05/25/21 Unknown History mcg (2,000 unit) tablet (Vitamin D3) gabapentin 300 mg capsule See Rx Instructions .ROUTE .COMPLEX 05/12/21 05/25/21 Unknown History lisinopril 10 mg tablet 10 mg PO DAILY PRN 05/12/21 05/25/21 Unknown History melatonin 10 mg tablet 10 mg PO DAILY PRN 05/12/21 05/25/21 Unknown History omeprazole 40 mg capsule,delayed 40 mg PO QAM 05/12/21 05/25/21 Unknown History release oxycodone 5 mg tablet 5 mg PO Q4H PRN #10 tab 05/12/21 05/25/21 Unknown Rx polyethylene glycol 3350 17 gram 34 g PO DAILY #30 ea 05/12/21 05/25/21 Unknown Rx oral powder packet (Miralax) prazosin 2 mg capsule 4 mg PO BEDTIME 05/12/21 05/25/21 Unknown History sertraline 100 mg tablet (Zoloft) 100 mg PO QAM 05/12/21 05/25/21 Unknown History sildenafil 100 mg tablet 100 mg PO PRN PRN 05/12/21 05/25/21 Unknown History Allergies Allergy/AdvReac Type Severity Reaction Status Date / Time No Known Allergies Allergy Verified 05/25/21 12:17 [facility] Anesthesia Medical History Hypertension PTSD (post-traumatic stress disorder) Surgical History History of bilateral knee arthroplasty Social History Smoking and tobacco status: former smoker Data Anesthesia Cardiac Studies: No Data to Display
[2021-05-27 06:52] VITALS: BP 142/101; PULSE 90; RESP 18; TEMP 36.1; O2SAT 98
[2021-05-27] MEDS: sodium chloride 0.9% 1,000 ML 30 ML IV ×2 (06:57→08:54)
--- NOTE | 2021-05-27 09:52 | P.HP_ITS ---
Same Day Surgery H&P Indication for Procedure/HPI DATE OF PROCEDURE: May 27, 2021 CHIEF COMPLAINT/INDICATIONFOR SURGICAL PROCEDURE: EGD PREOP DIAGNOSIS: upper gi symptoms PLANNED PROCEDURE: Operation Date: 05/27/21 09:15 Proposed Procedures p EGD 12864/r10.9(Not Applicable) - Patrick Lee MD Medications/Allergies* Home Medications Medication Instructions Recorded Confirmed Type meloxicam 15 mg tablet 15 mg PO DAILY 05/03/21 05/25/21 History albuterol sulfate 90 mcg/actuation 2 puff INHALATION QID PRN 05/12/21 05/25/21 History aerosol inhaler (ProAir HFA) aspirin-sod bicarb-citric acid 325 1 tab PO PRN 05/12/21 05/25/21 History mg-1,916 mg-1,000 mg efferves tab ([place] Original) baclofen 10 mg tablet 10 mg PO TID PRN 05/12/21 05/25/21 History cholecalciferol (vitamin D3) 50 4,000 unit PO DAILY 05/12/21 05/25/21 History mcg (2,000 unit) tablet (Vitamin D3) gabapentin 300 mg capsule See Rx Instructions .ROUTE .COMPLEX 05/12/21 05/25/21 History lisinopril 10 mg tablet 10 mg PO DAILY PRN 05/12/21 05/25/21 History melatonin 10 mg tablet 10 mg PO DAILY PRN 05/12/21 05/25/21 History omeprazole 40 mg capsule,delayed 40 mg PO QAM 05/12/21 05/25/21 History release prazosin 2 mg capsule 4 mg PO BEDTIME 05/12/21 05/25/21 History sertraline 100 mg tablet (Zoloft) 100 mg PO QAM 05/12/21 05/27/21 History sildenafil 100 mg tablet 100 mg PO PRN PRN 05/12/21 05/25/21 History Allergies/Adverse Reactions Allergy/AdvReac Type Severity Reaction Status Date / Time No Known Allergies Allergy Verified 05/25/21 12:17 Current Medications: Generic Name Dose Route Start Last Admin Trade Name Freq PRN Reason Stop Dose Admin Sodium Chloride 1,000 mls @ 30 mls/hr 05/27/21 06:45 05/27/21 08:51 Sodium Chloride 0.9% IV 05/28/21 06:44 Infused .Q24H YAMILA Infusion Sodium Chloride 1,000 mls @ 30 mls/hr 05/27/21 09:00 05/27/21 08:54 Sodium Chloride 0.9% IV 30 mls/hr .Q24H YAMILA Administration Pertinent History/Comorbid Conditions* Medical History (Updated 05/20/21 @ 00:01 by ) Hypertension PTSD (post-traumatic stress disorder) Surgical History (Updated 05/03/21 @ 13:43 by Patrick Lee MD) History of bilateral knee arthroplasty Social History Smoking and tobacco status: former smoker Pertinent Exam Findings alert, oriented x 3 and regular rate & rhythm Recommendations Surgery/Procedure today Coding Level of Care Code Acute Outbound Sales Consultant for Jaquelin Cooper
[2021-05-27 10:13] VITALS: BP 126/90; PULSE 76; RESP 18; TEMP 37.1; O2SAT 94
[2021-05-27 10:25] VITALS: BP 129/93; PULSE 65; RESP 18; O2SAT 94
--- NOTE | 2021-05-27 12:44 | ANE.PACU2 ---
Inpatient post-anesthesia follow up: Airway intact: Yes Vital signs: Temperature 98.7 F Pulse Rate 65 Respiratory Rate 18 Blood Pressure 129/93 Pulse Oximetry 94 Oxygen Delivery Me thod Room Air Oxygen Flow Rate 2 Fraction of Inspir ed Oxygen Hydration adequate: Yes Nausea and vomiting: No Pain level: 1 Mental status: Baseline
== END 2021-05-27 10:45 | disposition home or self-care (01) ==
PROVIDERS: PCP Family Medicine; Visit Provider Surgery
PROC: 0DJ08ZZ Inspection of Upper Intestinal Tract, Via Natural or Artificial Opening Endoscopic (ICD-10-PCS; CPT 43235; principal; 2021-05-27 09:15)
DX: R10.9 Unspecified abdominal pain (principal); K29.50 Unspecified chronic gastritis without bleeding; I10 Essential (primary) hypertension; K21.9 Gastro-esophageal reflux disease without esophagitis; Z79.82 Long term (current) use of aspirin; Z87.891 Personal history of nicotine dependence
CPT/HCPCS: 43239; 88305; J2704; J7030

== ENCOUNTER 2021-10-05 07:11 | Emergency (ER) | payer OTHER, SELFPAY ==
[2021-10-05] VITALS (18 sets, daily range): BP systolic 105–136; BP diastolic 63–104; PULSE 96–130; RESP 16–32; TEMP 38.6; O2SAT 92–98
--- NOTE | 2021-10-05 07:16 | XR_ITS ---
WS: [id number] Acute abdomen series, 10/05/2021 Clinical Data: abd pain n/v/d Comparison: None. Findings: In the chest there are no nodules, masses or effusions. The heart is normal. The pulmonary vascularity is not increased. No free air is seen beneath the diaphragms. No abnormal intra-abdominal masses or calcifications are seen. There is air in the stomach, small bowel and colon. No obstruction is seen. Monitor leads are o n the abdominal wall. There is a moderate amount of fecal material throughout the colon. XR/XR acute abdomen series 94306 Impression: 1. Negative chest. 2. Moderate generalized ileus.
--- NOTE | 2021-10-05 07:17 | W.ED.ABDPA2 ---
HPI - Abdominal Pain General: Chief Complaint: Nausea/Vomiting/Diarrhea Stated Complaint: N/V FEVER Time Seen by Provider: 10/05/21 07:13 History of Present Illness: 46-year-old presents due to diffuse body aches fever cough nausea nonbloody nonbilious vomiting and nonbloody diarrhea. States this started yesterday. Reports headache chest pain back pain abdominal pain diffuse muscle aches. States that the belly pain is the worst. Denies any head trauma. Denies any focal weakness numbness or tingling. Denies any shortness of breath. Denies lower extremity pain or swelling. Denies any dysuria or urethral discharge. Had fever to 102 by EMS. Review of Systems Narrative: - CONSTITUTIONAL: Denies weight loss, chills. - HEENT: Denies changes in vision and hearing. - RESPIRATORY: As above - CV: As above - GI: As above - : Denies dysuria and urinary frequency. - MSK: Denies myalgia and joint pain. - SKIN: Denies rash and pruritus. - NEUROLOGICAL: As above - PSYCHIATRIC: Denies suicidal ideation PFS ED PFSH: Medical History (Updated 06/03/21 @ 14:05 by Patrick Lee MD) Helicobacter pylori gastritis Hypertension PTSD (post-traumatic stress disorder) Surgical History H/O esophagogastroduodenoscopy (05/27/21) linear gastric ulcers History of bilateral knee arthroplasty Social History Smoking and tobacco status: former smoker Physical Exam Narrative: EXAM NARRATIVE: - GENERAL: Alert and oriented x 3. No acute distress. Well-nourished. - EYES: EOMI. Anicteric. - HENT: Atraumatic, no C-spine tenderness. Moist mucous membranes. No scleral icterus. No cervical lymphadenopathy. - LUNGS: Clear to auscultation bilaterally. No accessory muscle use. Equal lung sounds bilaterally. No respiratory distress. - CARDIOVASCULAR: Regular tachycardia. No murmur. No JVD. - ABDOMEN: Soft, mild diffuse tenderness, non-distended. Negative CVA tenderness bilaterally, no rebound or guarding, negative Gonzalez sign. No palpable masses. - EXTREMITIES: No edema. Non-tender. - SKIN: No rashes or lesions. Warm. - NEUROLOGIC: No meningismus or focal neurological deficits. CN II-XII grossly intact. - PSYCHIATRIC: Cooperative. Appropriate mood and affect. Course Vital Signs: Vital signs: Vital Signs Temperature 101.4 F H 10/05/21 07:19 Pulse Rate 96 10/05/21 12:00 Respiratory Rate 32 H 10/05/21 12:00 Blood Pressure 133/89 10/05/21 12:00 Pulse Oximetry 98 10/05/21 12:00 MDM - Abdominal Pain Medical Decision Making 46-year-old presents due to abdominal pain nausea and vomiting. He is febrile but otherwise hemodynamically stable though tachycardic. Improved with IV fluids and Tylenol. COVID swab is positive. Does have elevated LFTs but CT scan and ultrasound does not reveal any sign of cholecystitis or other acute abdominal etiology. Remainder of lab work unremarkable. Prescription for Zofran provided. Tolerated p.o. challenge. At this time I believe patient would be safe for discharge and outpatient follow-up. Return precautions provided. Plan was reviewed with the patient who expressed understanding. Questions answered. Patient will follow up with PCP. Patient discharged in stable condition. Lab Data : 10/05/21 07:28 10/05/21 07:28 Labs/Radiology: Radiology Impressions Chest/Abdomen X-ray 10/05/21 07:16 Impression: 1. Negative chest. 2. Moderate generalized ileus. Abdomen/Pelvis CT 10/05/21 07:28 IMPRESSION: 1. Mild hepatomegaly with diffuse fatty infiltration of the liver unchanged from previous. 2. Mild splenomegaly unchanged. 3. Normal caliber abdominal aorta. 4. No hydronephrosis in either kidney. No obstructing renal or ureteral calculi. 5. No other significant findings and no change from previous Abdomen Ultrasound 10/05/21 07:57 IMPRESSION: 1. Negative gallbladder. 2. No bile duct dilatation. 3. Mild hepatic steatosis and hepatomegaly. Laboratory Results WBC 4.6 10^3/uL (4.0-10.0) 10/05/21 07:28 RBC 5.19 10^6/uL (4.1-5.3) 10/05/21 07:28 Hgb 16.6 g/dL (11.7-16.6) 10/05/21 07:28 Hct 46.8 % (42.0-52.0) 10/05/21 07: MCV 90.2 fl (80-94) 10/05/21 07: MCH 32.0 pg (28.0-34.0) 10/05/21 07: MCHC 35.5 g/dL (30.0-36.0) 10/05/21 07: RDW 13.9 % (12.1-15.1) 10/05/21 07: Plt Count 127 10^3/cmm (130-400) L 10/05/21 07:28 MPV 12.3 fL (7.4-10.4) H 10/05/21 07: Neut % (Auto) 79.3 % 10/05/21 07: Lymph % (Auto) 8.6 % 10/05/21 07: [place] % (Auto) 10.8 % 10/05/21 07: Eos % (Auto) 0.2 % 10/05/21 07: Baso % (Auto) 0.9 % 10/05/21 07: Neut # (Auto) 3.67 10^3/uL (1.8-7.7) 10/05/21 07: Lymph # (Auto) 0.4 10^3/uL (0.8-4.8) L 10/05/21 07: [place] # (Auto) 0.5 10^3/uL (0.2-0.9) 10/05/21 07: Eos # (Auto) 0.0 10^3/uL (0.0-0.8) 10/05/21 07: Baso # (Auto) 0.0 10^3/uL (0.0-0.1) 10/05/21 07: Nucleated RBC % (auto) 0 % 10/05/21 07: Nucleated RBCs # 0.0 /100WBC 10/05/21 07: Sodium 130 mmol/L (136-145) L 10/05/21 07:28 Potassium 3.6 mmol/L (3.5-5.1) 10/05/21 07: Chloride 91 mmol/L (98-107) L 10/05/21 07:28 Carbon Dioxide 17 mmol/L (22-29) L 10/05/21 07:28 Anion Gap 25.6 (5-19) H 10/05/21 07:28 BUN 9 mg/dL (6-20) 10/05/21 07:28 Creatinine 1.0 mg/dL (0.7-1.2) 10/05/21 07:28 GFR Calculation 80.8 mL/min (90-130) L 10/05/21 07:28 Glucose 122 mg/dL (65-115) H 10/05/21 07:28 Calculated Osmolality 270 mOsm/kg (285-295) L 10/05/21 07:28 Lactate 1.0 mmol/L (0.5-2.2) 10/05/21 08:56 Calcium 9.3 mg/dL (8.5-10.5) 10/05/21 07:28 Total Bilirubin 2.0 mg/dL (0.15-1.2) H 10/05/21 07:28 AST 323 U/L (0-40) H 10/05/21 07:28 ALT 128 U/L (0-41) H 10/05/21 07:28 Alkaline Phosphatase 109 IU/L (40-130) 10/05/21 07:28 Troponin T Gen 5 ng/L 9 ng/L (0-15) 10/05/21 07:28 Total Protein 8.1 g/dL (6.6-8.7) 10/05/21 07:28 Albumin 4.8 g/dL (3.5-5.2) 10/05/21 07:28 Globulin 3.3 g/dL (1.3-4.6) 10/05/21 07:28 Lipase 19 U/L (13-60) 10/05/21 07:28 Urine Color Yellow (Yellow) 10/05/21 11:50 Urine Appearance Clear (CLEAR) 10/05/21 11:50 Urine pH 5 (5-7) 10/05/21 11:50 Ur Specific [place] 1.010 (1.005-1.030) 10/05/21 11:50 Urine Protein Neg (Negative) 10/05/21 11:50 Urine Glucose (UA) Norm (Normal) 10/05/21 11:50 Urine Ketones 1+ (Negative) H 10/05/21 11:50 Urine Blood Neg (Negative) 10/05/21 11:50 Urine Nitrate Negative (Negative) 10/05/21 11:50 Urine Bilirubin Neg (Negative) 10/05/21 11:50 Urine Urobilinogen 4 mg/dL (Negative) H 10/05/21 11:50 Ur Leukocyte Esterase Negative (Negative) 10/05/21 11:50 Urine RBC 0-4 /hpf (0-2) H 10/05/21 11:50 Urine WBC 0-4 /hpf (0-5) H 10/05/21 11:50 Ur Squamous Epith Cells 0-4 /hpf (0-5) H 10/05/21 11:50 Amorphous Sediment Not Reportable 10/05/21 11:50 Urine Bacteria None /hpf (NONE) 10/05/21 11:50 Urine Mucus 1+ /hpf 10/05/21 11:50 SARS-CoV-2 Ag (Rapid) Positive (Negative) H 10/05/21 08:56 EKG Data EKG 1: Other EKG comments: Sinus tachycardia, rate of 126, no sign of acute ischemia or other acute abnormality. Discharge Plan Discharge Condition: Stable Prescriptions: No Action sertraline [Zoloft] 100 mg Tablet 200 mg PO QAM 0RF omeprazole 40 mg Capsule,Delayed Release(Dr/Ec) 40 mg PO DAILY PRN (Reason: Acid Reflux) 0RF Hold Instructions: Resume on 06/10/21. sildenafil 100 mg Tablet 100 mg PO PRN PRN (Reason: Erectile Dysfunction) 0RF baclofen 10 mg Tablet 10 mg PO TID PRN (Reason: Muscle Spasm) 0RF lisinopril 10 mg Tablet 10 mg PO DAILY 0RF gabapentin 300 mg Capsule See Rx Instructions .ROUTE .COMPLEX 0RF Rx Instructions: 300mg po bid and 600mg po bedtime as needed for pain albuterol sulfate [ProAir HFA] 90 mcg/actuation Hfa Aerosol Inhaler 2 puff INHALATION QID PRN (Reason: Shortness Of Breath) 0RF cholecalciferol (vitamin D3) [Vitamin D3] 50 mcg (2,000 unit) Tablet 2,000 unit PO DAILY 0RF aspirin 325 mg Tablet 1,300 mg PO PRN PRN (Reason: Chest Pain) 0RF Mobic 15 mg Tablet 15 mg PO DAILY 0RF Referrals: Margi Wang MD [Primary Care Provider] - Coding Level of Care Code ED Barrel Rifler Hook for Chg [place]
--- NOTE | 2021-10-05 07:28 | ECG_ITS ---
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 Measurements Intervals [place] Rate: 126 P: 59 NM: 145 QRS: 242 QRSD: 94 T: 60 QT: 314 QTc: 455 Interpretive Statements SINUS TACHYCARDIA RIGHT AXIS DEVIATION [QRS AXIS > 100] PATTERN CONSISTENT WITH PULMONARY DISEASE Compared to ECG 05/12/2021 18:17:29 Right-axis deviation now present Sinus rhythm no longer present Left anterior fascicular block no longer present ST (T wave) deviation still present Electronically Signed On 10-05-2021 17:55:51 CDT by Gamaliel Nye M.D. [id number]
--- NOTE | 2021-10-05 07:28 | CT_ITS ---
WS: [id number] CT ABDOMEN PELVIS TECHNIQUE: Contrast-enhanced CT of the abdomen and pelvis with coronal and sagittal reformatted image s. CLINICAL INFORMATION: abd pain, fever COMPARISON: CT May 12, 2021 DLP: 1159.[address] scans at [facility] use at least one of these dose optimization techniques: automated e xposure control; mA and/or kV adjustment per patient size (includes targeted exams where dose is matc hed to clinical indication); or iterative reconstruction. FINDINGS: Hepatomegaly with diffuse fatty infiltration liver. Mild splenomegaly. Normal portal vein and splenic vein. Normal pancreatic parenchymal enhancement. Normal GE junction. Adrenal glands are normal. Normal renal cortical enhancement. No hydronephrosis. No obstructing renal or ureteral calculi. Normal caliber abdominal aorta. Celiac and SMA are patent. Incidental fat-conta ining umbilical hernia. Normal sigmoid colon. No free fluid in the abdomen or pelvis. Normal lumbar spine. Lung bases are wel l aerated. No acute findings. CT/CT abdomen pelvis w con* [id number] IMPRESSION: 1. Mild hepatomegaly with diffuse fatty infiltration of the liver unchanged fr om previous. 2. Mild splenomegaly unchanged. 3. Normal caliber abdominal aorta. 4. No hydronephrosis in either kidney. No obstructing renal or ureteral calcul i. 5. No other significant findings and no change from previous
[2021-10-05 07:37] LABS: Basophils % 0.9 %; Eosinophils % 0.2 %; Hematocrit 46.8 % (42.0-52.0); Hemoglobin 16.6 g/dL (11.7-16.6); Lymphocytes # 0.4 10^3/uL (0.8-4.8); Lymphocytes % 8.6 %; Mean Corpuscular HGB Conc 35.5 g/dL (30.0-36.0); Mean Corpuscular Volume 90.2 fl (80-94); Mean Platelet Volume 12.3 fL (7.4-10.4); Monocytes # 0.5 10^3/uL (0.2-0.9); Monocytes % 10.8 %; Neutrophils # 3.67 10^3/uL (1.8-7.7); Neutrophils % 79.3 %; Nucleated Red Blood Cells % 0 %; Platelet Count 127 10^3/cmm (130-400); Red Blood Count 5.19 10^6/uL (4.1-5.3); Red Cell Distribution Width 13.9 % (12.1-15.1); White Blood Count 4.6 10^3/uL (4.0-10.0)
[2021-10-05] MEDS: sodium chloride 0.9% 1,000 ML 999 ML IV ×2 (07:37→10:31)
[2021-10-05] MEDS: metoclopramide 5 mg/mL SDV 2 mL 10 MG IVP (07:39)
[2021-10-05] MEDS: diphenhydrAMINE 50 mg/mL SDV 1mL 25 MG IVP (07:40)
[2021-10-05] MEDS: acetaminophen 500 mg Tablet PO (07:42)
[2021-10-05 07:50] LABS: Alanine Aminotransferase 128 U/L (0-41); Albumin Level 4.8 g/dL (3.5-5.2); Alkaline Phosphatase 109 IU/L (40-130); Anion Gap 25.6 (5-19); Aspartate Amino Transferase 323 U/L (0-40); Blood Urea Nitrogen 9 mg/dL (6-20); Calcium 9.3 mg/dL (8.5-10.5); Carbon Dioxide 17 mmol/L (22-29); Chloride 91 mmol/L (98-107); Globulin 3.3 g/dL (1.3-4.6); Glomerular Filtration Rate 80.8 mL/min (90-130); Glucose 122 mg/dL (65-115); Lipase 19 U/L (13-60); Osmolality Calculated 270 mOsm/kg (285-295); Potassium 3.6 mmol/L (3.5-5.1); Sodium 130 mmol/L (136-145); Total Protein 8.1 g/dL (6.6-8.7)
--- NOTE | 2021-10-05 07:57 | US_ITS ---
WS: [id number] RIGHT UPPER QUADRANT ULTRASOUND HISTORY: elevated LFT, abd pain COMPARISON: 04/25/2021 Liver: 16.7 cm in length. Mild coarse echotexture and top normal size liver. No mass or bile duct dil atation. Portal Vein: Normal hepatopetal flow with monophasic waveform. Gallbladder: Normally distended gallbladder with no stones or wall thickening. CBD: 0.5 cm Pancreas: Poorly visualized due to body habitus and bowel gas. Right kidney: 10.6 cm in length. Normal size and echogenicity. No hydronephrosis or mass. Aorta and IVC: Unremarkable abdominal aorta and IVC. No ascites. US/US abdomen limited [id number] IMPRESSION: 1. Negative gallbladder. 2. No bile duct dilatation. 3. Mild hepatic steatosis and hepatomegaly.
[2021-10-05] MEDS: iohexol 350 mg/mL 100 mL Btl IV (08:04)
[2021-10-05] MEDS: piperacillin-tazobactam 3.375 GM in sodium chloride 0.9% (plus) 50 ML IV (08:51)
[2021-10-05 08:54] LABS: Troponin T (5th) Once 9 ng/L (0-15)
[2021-10-05] MEDS: vancomycin 1,250 MG/250 ML PIGGYBACK 250 MG IV (09:48)
[2021-10-05 10:27] LABS: SARS Covid-2 Antigen Positive (Negative)
[2021-10-05 12:25] LABS: Urine Appearance Clear (CLEAR); Urine Color Yellow (Yellow)
[2021-10-05 12:26] LABS: Add Urine Culture? No; Bilirubin Urine Neg (Negative); Blood Urine Neg (Negative); Glucose Urine UA Norm (Normal); Ketones Urine 1+ (Negative); Leukocyte Esterase Urine Negative (Negative); Mucus Urine 1+ /hpf; Nitrate Urine Negative (Negative); Protein Urine Neg (Negative); RBC Urine 0-4 /hpf (0-2); Squamous Epithelial Cell Urine 0-4 /hpf (0-5); Urobilinogen Urine 4 mg/dL (Negative); WBC Urine 0-4 /hpf (0-5); pH Urine 5 (5-7)
== END 2021-10-05 13:23 | disposition home or self-care (01) ==
PROVIDERS: Emergency Provider Emergency Medicine; PCP Family Medicine
DX: U07.1 COVID-19 (principal); I10 Essential (primary) hypertension
CPT/HCPCS: 74022; 74177; 76705; 80053; 81001; 83605; 83690; 84484; 85025; 87426; 93005; 96365; 96367; 96375; 99285; J1200; J2543; J2765; J3370; J7030; Q9967

== ENCOUNTER 2022-04-27 08:23 | Outpatient (CLI) | payer OTHER, SELFPAY ==
--- NOTE | 2022-04-27 08:32 | MR_ITS ---
WS: [id number] MRI LUMBAR SPINE NONCONTRAST. HISTORY: LOW BACK PAIN COMPARISON: None available. TECHNIQUE: Sagittal and axial multisequence imaging is submitted. Mild increase in the thoracic kyphosis. T5-6 central disc protrusion contacts the thoracic cord. Slight increase in the lumbar lordosis. Disc spaces and vertebral body heights are well-preserved. Conus terminates normally at L1-2 disc level. L1-L2: No stenosis. No disc protrusions. L2-L3: Very minimal LEFT foraminal narrowing and ligamentum flavum hypertrophy. No stenosis. L3-L4: Mild ligamentum flavum and facet arthritis. Very mild narrowing of the foramina. No high-grade stenosis or focal protrusion. L4-L5: Mild annular disc bulging with moderate ligamentum flavum and facet arthritis. Small amount of fluid in the facet joints. Mild central and bilateral subarticular recess encroachment. There is als o mild to moderate narrowing of the foramina. Mild disc encroachment upon the traversing L5 nerve patti ts. L5-S1: Very minimal disc bulge. Mild encroachment upon the S1 nerve roots but no displacement. Minima l foraminal narrowing. Liver is enlarged extending over length of at least 19 cm. Spleen is also enlarged. These findings we re described on a CT of 10/05/2021. MR/MR lumbar spine wo con* [id number] IMPRESSION: 1. No high-grade central or foraminal stenosis. 2. Small central disc protrusion at T5-6 contacting the thoracic cord. 3. Mild central and bilateral subarticular recess stenosis at L4-5 with mild t o moderate narrowing of the foramina. Disc contacts the traversing L5 nerve patti ts. 4. Mild encroachment upon the S1 nerve roots at L5-S1. Mild foraminal narrowin g.
== END 2022-04-27 08:24 | disposition home or self-care (01) ==
LOC: RAD 08:25
PROVIDERS: PCP Nurse Practitioner; Visit Provider Nurse Practitioner
DX: M54.51 Vertebrogenic low back pain (principal)
CPT/HCPCS: 72148